=== PATIENT | female | born 1930 | race Caucasian/White ===

== ENCOUNTER 2018-06-04 10:42 | Inpatient (IN) | payer MEDICARE, BC ==
[~2018-06-04] VITALS: Ht 157.5 cm; Wt 68.6 kg
[~2018-06-04 10:42] MED LIST: ASPI81CH PO; Benicar Hct 201 EACH PO; CILO100; Cilostazol50 MG PO; LEVFLO500 PO; LIVALO2 MG PO; METO25ER PO; METO50ER PO; OLME20 PO; OLMESARTAN-HCT1 EAC1 PO; OSEL75CA PO; SIMV40 PO; Tamiflu30 MG PO; VALS80 PO
[2018-06-04] MEDS ORDERED: COLCHICINE0.6 MG PO (11:09)
[2018-06-04 11:43] LABS: BASOPHILS ABSOLUTE AUTO 0.02 K/mm3 (0.00-0.23); BASOPHILS PERCENT AUTO 0 % (0-2); EOSINOPHILS ABSOLUTE AUTO 0.02 K/mm3 (0.00-0.68); EOSINOPHILS PERCENT AUTO 0 % (0-6); Hematocrit 40.9 % (33.0-51.0); Hemoglobin 12.6 g/dL (11.5-16.0); IMMATURE GRAN ABSOLUTE AUTO 0.03 K/mm3 (0.00-0.10); IMMATURE GRAN PERCENT AUTO 0 % (0-1); LYMPHOCYTES ABSOLUTE AUTO 2.42 K/mm3 (0.84-5.20); LYMPHOCYTES PERCENT AUTO 32 % (21-46); MONOCYTES ABSOLUTE AUTO 0.39 K/mm3 (0.16-1.47); MONOCYTES PERCENT AUTO 5 % (4-13); Mean Corpuscular HGB 29.5 pg (26.0-34.0); Mean Corpuscular HGB Conc 30.8 g/dL (31.5-36.5); NEUTROPHILS ABSOLUTE AUTO 4.81 K/mm3 (1.96-9.15); NEUTROPHILS PERCENT AUTO 62 % (41-73); RDW Coefficient Variation 13.3 % (11.7-14.2); RDW Standard Deviation 47.5 fL (35.1-46.3); Red Blood Cell Count 4.27 M/mm3 (3.80-5.20); White Blood Cell Count 7.69 K/mm3 (4.00-11.30)
[2018-06-04 11:53] LABS: Mean Corpuscular Volume 96 fL (80-100); Mean Platelet Volume 11.7 fL (9.1-12.4); Platelet Count 100 K/mm3 (150-400)
[2018-06-04 11:59] LABS: Albumin, Blood 3.1 g/dL (3.4-5.0); Albumin/Globulin Ratio 0.8 (0.8-1.8); Bilirubin, Total 0.5 mg/dL (0.1-1.0); Bun/Creatinine Ratio 18.8 (12.0-20.0); Creatinine, Blood 1.65 mg/dL (0.40-1.00); Potassium, Blood 4.9 mmol/L (3.5-5.5); Total Protein, Blood 7.1 g/dL (6.4-8.2)
[2018-06-04 12:16] LABS: Troponin I 1.12 ng/mL (0.000-0.040)
--- NOTE | 2018-06-04 16:38 | NUR ---
CRITICAL TROP PT ADMITTED AT 1355. ELEVATED BP UPON ARRIVAL. LASIX & NITRO PATCH ORDERED TO ASSIST WITH HTN. PT LOST IV ACCESS BEFORE LASIX ABLE TO BE GIVEN. CRITICAL TROPONIN WAS CALLED OF 8.4. PT HAS A TROPONIN OF 1.[address] CESPEDES AWARE OF NEW TROPONIN & LOSS OF IV ACCESS. STATED SHE WOULD START HEPARIN DRIP AND HAVE A CARDIOLOGY CONSULT PLACED. IV ACCESS IS IN PROGRESS AT THIS TIME. PT DENIES SOB OR CHEST PAIN. PT STATES SHE JUST FEELS WEAK. NO OTHER CHANGES IN ASSESSMENT AT THIS TIME.
--- NOTE | 2018-06-04 17:48 | NUR ---
Echocardiogram completed.
--- NOTE | 2018-06-04 19:10 | NUR ---
SHIFT SUMMARY PT CONTINUES TO DENY CHEST PAIN OR DISCOMFORT. NO SOB. IV ACCESS GAINED & HEPARIN DRIP STARTED. PT CONTINUES TO HAVE AN ELEVATED BP. METOPEROL GIVEN PER EMAR. NO OTHER CHANGES IN ASSESSMENT AT THIS TIME. OTHER VITALS STABLE. REPORT GIVEN TO JUSTINE OZUNA. SULMA STATED SHE HAD NO FURTHER QUESTIONS AT THIS TIME.
--- NOTE | 2018-06-04 23:01 | NUR ---
CRITICAL LAB 2230 CRITICAL TROPONIN 16.4. NOTIFIED PHYSICIAN OF RESULTS AND NO ACTIVE SYMPTOMS R/T CARDIAC EPISODE. STATES WEAKNESS WHICH IS UNCHANGED, BUT NO CP OR SOB. TELE RUNNING NSR WITH PVC'S AND PAC'S @ 83. RUNNING HEPARIN @ 13U/KG/HR. VSS/AFEBRILE. WCTM. NO NEW ORDERS.
[2018-06-05 03:15] LABS: BASOPHILS ABSOLUTE AUTO 0.01 K/mm3 (0.00-0.23); BASOPHILS PERCENT AUTO 0 % (0-2); EOSINOPHILS ABSOLUTE AUTO 0.01 K/mm3 (0.00-0.68); EOSINOPHILS PERCENT AUTO 0 % (0-6); Hematocrit 37.4 % (33.0-51.0); IMMATURE GRAN ABSOLUTE AUTO 0.03 K/mm3 (0.00-0.10); IMMATURE GRAN PERCENT AUTO 0 % (0-1); LYMPHOCYTES ABSOLUTE AUTO 2.19 K/mm3 (0.84-5.20); LYMPHOCYTES PERCENT AUTO 30 % (21-46); MONOCYTES ABSOLUTE AUTO 0.61 K/mm3 (0.16-1.47); MONOCYTES PERCENT AUTO 8 % (4-13); Mean Corpuscular HGB 30.2 pg (26.0-34.0); Mean Corpuscular HGB Conc 32.1 g/dL (31.5-36.5); Mean Corpuscular Volume 94 fL (80-100); Mean Platelet Volume 11.2 fL (9.1-12.4); NEUTROPHILS ABSOLUTE AUTO 4.43 K/mm3 (1.96-9.15); NEUTROPHILS PERCENT AUTO 61 % (41-73); Platelet Count 122 K/mm3 (150-400); RDW Coefficient Variation 13.2 % (11.7-14.2); RDW Standard Deviation 45.8 fL (35.1-46.3); Red Blood Cell Count 3.97 M/mm3 (3.80-5.20); White Blood Cell Count 7.28 K/mm3 (4.00-11.30)
[2018-06-05 03:31] LABS: Albumin, Blood 2.9 g/dL (3.4-5.0); Albumin/Globulin Ratio 0.7 (0.8-1.8); Bilirubin, Total 0.5 mg/dL (0.1-1.0); Bun/Creatinine Ratio 15.1 (12.0-20.0); Calcium, Blood 7.8 mg/dL (8.5-10.1); Creatinine, Blood 1.99 mg/dL (0.40-1.00); Globulin, Blood 3.9 g/dL (2.2-4.0); Magnesium, Blood 1.5 mg/dL (1.6-2.4); Potassium, Blood 3.9 mmol/L (3.5-5.5); Total Protein, Blood 6.8 g/dL (6.4-8.2)
--- NOTE | 2018-06-05 05:37 | NUR ---
SHIFT SUMMARY A/O X4, ABLE TO MAKE NEEDS KNOWN. COOPERATIVE WITH CARE. CALLS AND ANSWERS QUESTIONS APPROPRIATELY. NO C/O PAIN/DISCOMFORT. UP WITH 1 ASSIST TO RESTROOM. ON 2L VIA NC WITH SATURATION >90%. REMAINS ON HEPARIN DRIP WITHOUT COMPLICATIONS. X2 CRITICAL TROPONINS RELATED TO ON-CALL PHYSICIAN. NEW POWERGLIDE TO TYRELL THAT IS PATENT WITH BLOOD RETURN. REMAINS HYPERTENSIVE, BUT APPEARS ON TREND WITH PREVIOUS PRESSURES. LOOSE STOOL NOTED; BREIF IN PLACE. WCTM. BED IN LOWEST POSITION. CALL LIGHT AND BELONGINGS WITHIN REACH. REPORT TO ONCOMING RN.
--- NOTE | 2018-06-05 12:04 | NUR ---
ATIVAN ORDER PT & FAMILY DISCUSSING IF THEY WOULD LIKE TO PERSUE ANGIOGRAM AFTER TUFTING MACHINE FIXER DISCUSSED PROS VS. CONS. DR. CESPEDES ORDERED ATIVAN FOR THE PT TO EASE HER ANXIETY AND HELP WITH MAKING A DECISION. STATED THE PT NORMALLY TAKES ATIVAN BEFORE GOING TO THE DR. OFFICE. WILL CONTINUE TO MONITOR.
--- NOTE | 2018-06-05 17:17 | NUR ---
SHIFT SUMMARY NO CHANGES IN ASSESSMENT AT THIS TIME. AFTERNOON BP IMPROVED FROM THE AM, BUT STILL ELEVATED. PT CONTINUES TO DENY CHEST PAIN & SOB. PT STATES SHE "JUST FEELS WEAK." HEPARIN DRIP CONTINUED AT A RATE OF 13. PT GIVEN LOADING DOSE OF PLAVIX THIS SHIFT. NO BLEEDING NOTED. PT GIVEN ATIVAN TO ASSIST WITH ANXIETY R/T THIS STAY. PT HAS BEEN SLEEPING MOST THE AFTERNOON. PT & FAMILY ARE STILL TO DETERMINE TO CONTINUE WITH AN ANGIO OR NOT. VSS. WILL CONTINUE TO MONITOR UNTIL TURNOVER IS COMPLETE.
--- NOTE | 2018-06-06 05:29 | NUR ---
PT SLEPT THROUGH THE NIGHT, FAMILY AT BEDSIDE. HEPARIN VERIFIED WITH SULMA STAHL. BLOOD DRAWN FROM POWERGLIDE, CAP CHANGED. PT 1 PRSN ASSIST TO BEDSIDE COMM W/ FWW. NO C/O PAIN, SOB. O2 @ 2L. CALL LIGHT IN REACH
[2018-06-06 07:11] LABS: BASOPHILS ABSOLUTE AUTO 0.01 K/mm3 (0.00-0.23); BASOPHILS PERCENT AUTO 0 % (0-2); EOSINOPHILS ABSOLUTE AUTO 0.05 K/mm3 (0.00-0.68); EOSINOPHILS PERCENT AUTO 1 % (0-6); Hematocrit 32.1 % (33.0-51.0); Hemoglobin 10.2 g/dL (11.5-16.0); IMMATURE GRAN ABSOLUTE AUTO 0.03 K/mm3 (0.00-0.10); IMMATURE GRAN PERCENT AUTO 1 % (0-1); LYMPHOCYTES ABSOLUTE AUTO 1.42 K/mm3 (0.84-5.20); LYMPHOCYTES PERCENT AUTO 32 % (21-46); MONOCYTES PERCENT AUTO 11 % (4-13); Mean Corpuscular HGB 30.4 pg (26.0-34.0); Mean Corpuscular HGB Conc 31.8 g/dL (31.5-36.5); Mean Corpuscular Volume 96 fL (80-100); Mean Platelet Volume 10.6 fL (9.1-12.4); NEUTROPHILS ABSOLUTE AUTO 2.44 K/mm3 (1.96-9.15); NEUTROPHILS PERCENT AUTO 55 % (41-73); Platelet Count 116 K/mm3 (150-400); RDW Coefficient Variation 13.2 % (11.7-14.2); RDW Standard Deviation 46.9 fL (35.1-46.3); Red Blood Cell Count 3.35 M/mm3 (3.80-5.20); White Blood Cell Count 4.45 K/mm3 (4.00-11.30)
[2018-06-06 07:26] LABS: Albumin, Blood 2.4 g/dL (3.4-5.0); Albumin/Globulin Ratio 0.7 (0.8-1.8); Bilirubin, Total 0.3 mg/dL (0.1-1.0); Bun/Creatinine Ratio 12.7 (12.0-20.0); Calcium, Blood 7.5 mg/dL (8.5-10.1); Creatinine, Blood 2.45 mg/dL (0.40-1.00); Globulin, Blood 3.6 g/dL (2.2-4.0); Potassium, Blood 3.7 mmol/L (3.5-5.5)
--- NOTE | 2018-06-06 08:53 | NUR ---
PATIENT DID NOT EAT BREAKFAST THIS SHIFT. PATIENT WAS VERY SLEEPY AND DID NOT WANT TO WAKE UP AND EAT. TRAY WAS LEFT IN ROOM AND AFTER 0900 AND THEN WAS REMOVED AND TRAY WAS UNTOUCHED BY PATIENT. FAMILY WAS PRESENT IN ROOM.
--- NOTE | 2018-06-06 12:44 | NUR ---
PATIENT DID NOT EAT LUNCH THIS SHIFT DUE TO BEING NPO AT THIS TIME FOR A PROCEDURE.
--- NOTE | 2018-06-06 14:04 | NUR ---
DR RHODES (DIRECTOR ADULT) IN TO SEE PT THIS AM R/T NEED FOR ANGIOGRAM. PT DELIBERATE WITH SON & DECIDE TO HAVE PROCEDURE. HRT CTR RN NOTIFIED. DR ORDER NS @ 2OO ML/HR & PROCEDURE THIS AFTERNOON AFTER HYDRATION. ALSO ORDER MUCOMYST & PLAVIX. SHE STATE CONTINUING WEAKNESS/FATIGUE. IV ANTIBX FOR PNEUMONIA DX. LUNGS DECREASED BIOX >90% ON 2L O2. TELE SR W PVC @ 65. HEP GTT CONTINUES @ 15.1 ML/HR. HRT CTR RN STATE WILL BE UP FOR PT @ APPROX 1400. SHE IS PLEASANT/COOPERATIVE. SON @ BEDSIDE.
--- NOTE | 2018-06-06 18:51 | NUR ---
PT ADMITTED TO ICU-14 POST CATH AND STENT PLACEMENT. PT HAS MID CIRC. STENT PLACED VIA TR BAND AND SITE IS STABLE. PT DENIES R HAND NUMBNESS OR TENDERNESS AND SATS VIA FINGERS IS STABLE. PT IS VERY A/O BUT TIRED FROM PROCEDURE AND MEDS. WILL FOLLOW.
--- NOTE | 2018-06-06 18:58 | NUR ---
PT TR BAND SITE REMAINS STABLE. DUE TO SL ELEVATED BP AND CHANGE OF SHIFT TIME WILL DEFER DEFLATION TO NOC SHIFT. PT OCC COUCHING UP SMALL ANOUNT OF SPUTUM AND DENIES DISTRESS. PT NOW REQUESTING TO GET UP TO SIDE OF BED AND VOID, HOE WORKER TO ASSIST. VS NOTED.
--- NOTE | 2018-06-06 19:30 | NUR ---
REPORT RECIEVED FROM OFF GOING RN ELSIE. RESTS QUIETLY WHEN UNDISTURBED. MONITOR INTACT SHOWING SINUS RHYTHM. HEART RATE 70'S. DENIES DISCOMFORT. LUNG SOUNDS CLEAR WITH DECREASED SOUNDS IN THE BASES. SPO2 96-99% ON ROOM AIR. ABDMEN SOFT WITH BOWEL SOUNDS FOUR QUADS. UP TO BSC WITH ASSIST. VOIDS A MBER URINE/ ASSIST BACK TO BED. TR BAND INTACT SITE CLEAR. 2CC AIR RELEASED. WILL CONTINUE TO MONITOR AND REPORT CHANGE IN PATIENT CONDITION.
[2018-06-07 03:40] LABS: BASOPHILS ABSOLUTE AUTO 0.01 K/mm3 (0.00-0.23); BASOPHILS PERCENT AUTO 0 % (0-2); EOSINOPHILS ABSOLUTE AUTO 0.05 K/mm3 (0.00-0.68); EOSINOPHILS PERCENT AUTO 1 % (0-6); Hematocrit 25.3 % (33.0-51.0); IMMATURE GRAN ABSOLUTE AUTO 0.04 K/mm3 (0.00-0.10); IMMATURE GRAN PERCENT AUTO 1 % (0-1); LYMPHOCYTES ABSOLUTE AUTO 1.47 K/mm3 (0.84-5.20); LYMPHOCYTES PERCENT AUTO 29 % (21-46); MONOCYTES ABSOLUTE AUTO 0.54 K/mm3 (0.16-1.47); MONOCYTES PERCENT AUTO 11 % (4-13); Mean Corpuscular HGB Conc 31.6 g/dL (31.5-36.5); Mean Corpuscular Volume 95 fL (80-100); Mean Platelet Volume 10.9 fL (9.1-12.4); NEUTROPHILS PERCENT AUTO 58 % (41-73); Platelet Count 122 K/mm3 (150-400); RDW Coefficient Variation 13.1 % (11.7-14.2); RDW Standard Deviation 45.3 fL (35.1-46.3); Red Blood Cell Count 2.67 M/mm3 (3.80-5.20); White Blood Cell Count 5.01 K/mm3 (4.00-11.30)
[2018-06-07 04:10] LABS: Albumin, Blood 2.1 g/dL (3.4-5.0); Albumin/Globulin Ratio 0.7 (0.8-1.8); Bilirubin, Total 0.4 mg/dL (0.1-1.0); Bun/Creatinine Ratio 13.5 (12.0-20.0); Creatinine, Blood 2.23 mg/dL (0.40-1.00); Potassium, Blood 3.7 mmol/L (3.5-5.5); Total Protein, Blood 5.1 g/dL (6.4-8.2)
--- NOTE | 2018-06-07 06:14 | NUR ---
SHIFT SUMMARY RESTS QUIETLY WHEN UNDSITURBED. MONITOR INTACT SHOWING SINUS RHYTHM. HEART RATE 60'S-70'S. MEDICATED WITH TYLENOL FOR SHOULDER/BACK PAIN WITH GOOD RESULTS, ONCE THIS SHIFT. LUNG SOUNDS REMAIN CLEAR/DECREASED , RESPIRATIONS REGULAR AND EASY SPO2 94-98% ON ROOM AIR. ABDOMENS SOFT WITH BOWEL SOUNDS FOUR QUADS. VOIDS BLANCA URINE PER BEDSIDE COMMODE. UP WITH ONE ASSIST AND WALKER. ENCOURAGED TO REPOSITIONS SELF IN BED. TR BAND SITE BRUISED HOWEVER SOFT AND STABLE. CONTINUE TO MONITOR AND REPORT CHANGE IN PATINET CONDITION
--- NOTE | 2018-06-07 10:44 | NUR ---
ALLOWED PT TO SLEEP IN TILL ABOUT 0815. ONE OF SONS IN TO VISIT WHILE PT SET UP IN CHAIR EATING. PT NOTES SOME TENDERNESS IN L SHOULDER THAT IMPROVED WITH ACTIVITY. SHE THEN RETURNED TO BED FOR NAP W/O DISTRESS. TR SITES NOTED WITH HEMATOMA DISCUSSED WITH ARM BOARD REMAINING IN PLACE AND COACHING DISCUSSED WITH PT FOR F/O CARE PER PT. NS TKO. VSS.
[2018-06-07 16:33] LABS: Percent Saturation 23.3 % (15.0-50.0)
--- NOTE | 2018-06-07 18:33 | NUR ---
VSS. NO CHEST OR OTHER PAIN NOTED AND NO DISTRESS C/O OTHER THAN SOME L SHOULDER DISCOMFORT THAT IMPROVED WITH MOVEMENT. UP HAS BEEN UP FOR MEALS AND TO COMMODE BUT STILL REQUIRING SBA X1 PERSON. I/O NOTED. R TR SITE REMAINS BRUISED EARLIER NOTED AND NO BLEEDING OF SITE NOTED WITH ARM BOARD REMAINING ON.
--- NOTE | 2018-06-07 20:00 | NUR ---
ASSUME CARE: REPORT RECIEVED FROM ELSIE OFF GOING RN. MONITOR INTACT SHOWING SINUS RHYTHM. HEART RATE 70'S-80'S. LUNG SOUNDS CLEAR WITH DECREASED BASES. RESPIRATIONS REGULAR AND EASY ON ROOM AIR. SPO2 SPOT CHECKS 95%. ABDOMEN SOFT WITH BOWEL SOUNDS FOUR QUADS. DEPENDS IN PLACE SECONDARY TO INCONTINENCE. TR BAND SITE BRUISED HOWEVER SOFT. CONTINUE TO MONITOR AND REPOSRT CHANGE IN PATIENT CONDITION. DISCUSSED PENDING TRANSFER TO PCU 12 WITH PATIENT. AGREEABLE.
--- NOTE | 2018-06-07 21:15 | NUR ---
REPORT CALLED TO JOANN FLETCHER ACCEPTING RN IN PCU.
--- NOTE | 2018-06-07 21:35 | NUR ---
TRANSFER PER BED TO PCU 12 WITH JOANN FLETCHER ACCOMPANYING
[2018-06-08 04:11] LABS: Hematocrit 24.3 % (33.0-51.0); Hemoglobin 7.7 g/dL (11.5-16.0); Mean Corpuscular HGB 29.6 pg (26.0-34.0); Mean Corpuscular HGB Conc 31.7 g/dL (31.5-36.5); Mean Corpuscular Volume 94 fL (80-100); Mean Platelet Volume 10.7 fL (9.1-12.4); Platelet Count 141 K/mm3 (150-400); RDW Coefficient Variation 13.2 % (11.7-14.2); RDW Standard Deviation 44.9 fL (35.1-46.3)
[2018-06-08 04:30] LABS: Albumin, Blood 2.2 g/dL (3.4-5.0); Anion Gap 12 mmol/L (6-16); Blood Urea Nitrogen 29 mg/dL (8-24); Bun/Creatinine Ratio 13.5 (12.0-20.0); CHOL/HDL RATIO 2.9; CO2, Blood 18 mmol/L (21-32); Calcium, Blood 7.4 mg/dL (8.5-10.1); Chloride, Blood 113 mmol/L (98-108); Cholesterol 128 mg/dL (50-200); Creatinine, Blood 2.15 mg/dL (0.40-1.00); Glomerular Filtration Rate 23 (60-); Glucose, Blood 121 mg/dL (70-99); HDL Cholesterol 44 mg/dL (>39); LDL/HDL RATIO 1.4; Low Density Lipoprotein Chol 63 mg/dL (0-110); Phosphorus, Blood 2.4 mg/dL (2.5-4.9); Potassium, Blood 3.5 mmol/L (3.5-5.5); Sodium, Blood 143 mmol/L (136-145); Triglycerides 104 mg/dL (30-160); Very Low Density Lipoprot Chol 21 mg/dL (6-32)
--- NOTE | 2018-06-08 05:03 | NUR ---
SHIFT SUMMARY PT TRANSFERRED TO PCU AT APPROXIMATELY 2130. SHE WAS ALERT AND ORIENTED ON ARRIVAL AND HAS REMAINED SO T/O SHIFT. SHE HAS HAD NO ACUTE CHANGES TO VITALS, LOC OR MENTATION. PT HAS SLEPT WELL DURING THE NIGHT AND HAS BEEN ABLE TO STAND AND TRASFER TO BS WITH FWW AND SBA. PT ABLE TO COMMUNICATE WITH STAFF EFFECTIVELY AND DEMONSTRATED APPROPRIATE USE OF HER CALL LIGHT. CALL LIGHT WAS LEFT WITHIN REACH. PT DENIED ANY UNMET NEEDS T/O SHIFT. SHE HAD A STENT PLACED YESTERDAY AND HER TR BAND SITE REMAINS SWOLLEN AND BRUISED. THIS HAS IMPROVED PER REPORT FROM ICU NURSE AND BRUISING HAS NOT EXCEEDED THE OUTLINE THAT WAS DRAWN ON EARLIER. PT STATES THERE IS SOME SORENESS AT THE SITE, BUT IS TOLERABLE. SHE HAS BEEN PLEASANT AND COOPERATIVE WITH VITALS AND ASSESSMENTS. SHE HAS HER BED IN THE LOWEST POSITION, CALL LIGHT IN REACH, 2X SIDE RAILS IN PLACE AND NON SLIP SOCKS ON FOR SAFETY. SHE WILL CONTINUE TO BE MONITORED UNTIL HANDOFF TO DAYSHIFT RN.
--- NOTE | 2018-06-08 08:10 | NUR ---
Initial Assessment: Pt resting in bed. LS diminished in bases. HR reg. BT positive. Pulses palp. R radial site with large bruise marked with line. Bruise not outside of line. Site soft, slightly tender. Pt states that she is a little nauseas. States "it just feels like I have been laying down too long". Pt assisted up to chair for breakfast with one person sandro serra. VSS. Call light in reach. Will monitor.
--- NOTE | 2018-06-08 11:56 | NUR ---
UPDATE: 1St unit PRBC started per physician order. Pt sitting up in chair eating lunch. States that she is doing ok. VSS. LS diminished in bases. Pt has moist, productive cough of white sputum. Pt denies questions about blood transfusions. Will monitor.
--- NOTE | 2018-06-08 15:55 | NUR ---
UPDATE: 1st unit blood completed. No S/S of reaction. 2nd unit started. VSS. Pt verbalized understanding of possible blood reaction. Denies Questions. Call light in reach.
--- NOTE | 2018-06-08 19:00 | NUR ---
shift summary: Pt has done well this shift. She has been up for every meal as well as worked with PT. Pt tolerated all the movement very well but has become tired. BP has been elevated throughout the shift and was treated per orders (see emar). HR has remained stable in the 70-90's. Biox has been in the >90's on RA throughout the shift. Pt did start to become more flushed midway through 2nd blood transfusion. Temp remained 98 and pt states "i have always had екатерина cheeks", told her they were more екатерина then this AM. Pt did not seem to be bothered by being flushed but states that she is just worried about being in the hospital, her heart, blood transfusions and everything that is going on. Assured pt that we were taking care of her and that she was improving. 2Nd unit of blood completed at about 1845. VSS. Family in room with Patient. Pt states that she feels cold and that she is shivering. Pt temp 98.7 F but does appear flushed. Pt also states that she is feeling anxious. Explained it could be the 2 units of blood she recieved, the blood pressure medication that was given. Pt will be treated with ativan per orders for anxiety. No other changes this shift and no other S/S of blood reaction. Report was given to night RN.
[2018-06-09 04:15] LABS: Hematocrit 32.5 % (33.0-51.0); Hemoglobin 10.9 g/dL (11.5-16.0); Mean Corpuscular HGB 30.3 pg (26.0-34.0); Mean Corpuscular HGB Conc 33.5 g/dL (31.5-36.5); Mean Platelet Volume 10.7 fL (9.1-12.4); Platelet Count 148 K/mm3 (150-400); RDW Coefficient Variation 14.1 % (11.7-14.2); RDW Standard Deviation 46.9 fL (35.1-46.3); White Blood Cell Count 5.94 K/mm3 (4.00-11.30)
[2018-06-09 04:17] LABS: Mean Corpuscular Volume 90 fL (80-100)
[2018-06-09 04:34] LABS: Albumin, Blood 2.3 g/dL (3.4-5.0); Anion Gap 12 mmol/L (6-16); Blood Urea Nitrogen 24 mg/dL (8-24); Bun/Creatinine Ratio 11.8 (12.0-20.0); CO2, Blood 20 mmol/L (21-32); Calcium, Blood 7.1 mg/dL (8.5-10.1); Chloride, Blood 110 mmol/L (98-108); Creatinine, Blood 2.04 mg/dL (0.40-1.00); Glomerular Filtration Rate 24 (60-); Glucose, Blood 127 mg/dL (70-99); Phosphorus, Blood 3.5 mg/dL (2.5-4.9); Potassium, Blood 3.7 mmol/L (3.5-5.5); Sodium, Blood 142 mmol/L (136-145)
--- NOTE | 2018-06-09 06:28 | NUR ---
SHIFT SUMMARY PT ALERT AND ORIENTED X 3 THROUGHOUT SHIFT. SHE WAS VERY PLEASANT AND COOPERATIVE WITH VITALS AND ASSESSMENTS. PT HAD SOME ANXIETY AT SHIFT ONSET, FOLLOWING ADMINISTRATION OF RBC AND HYDRALAZINE. SHE ALSO HAD SOME FAMILY IN THE ROOM AT THIS TIME, WHO WERE ALSO VERY ANXIOUS. PT WAS PROVIDED ORDERED ANTI ANXIETY MEDICATION AND SHE DENIED ANY FURTHER ISSUES. SHE SLEPT WELL T/O SHIFT, VITALS WERE STABLE AND SHE REMAINED FREE OF PAIN T/O SHIFT. PT WAS ABLE TO STAND AND TRANSFER WITH ONE PERSON SBA TO [facility]. SHE HAS BRUISING PRESENT AT HER RIGHT WRIST ANGIO SITE AND UPPER RIGHT ARM. SKIN IS CLEAR OTHERWISE. PT DENIED ANY UNMET NEEDS AND USED HER CALL LIGHT APPROPRIATELY. SHE HAS HER CALL LIGHT IN REACH AND HER BED HAS BEEN LEFT IN THE LOWEST POSITION. SHE HAS NON SLIP SOCKS ON FOR SAFETY. SHE WILL CONTINUE TO BE MONITORED UNTIL HANDOFF TO DAYSHIFT RN.
--- NOTE | 2018-06-10 05:29 | NUR ---
SHIFT SUMMARY PT ORIGINALLY ADMITTED FOR LL PNEUMONIA. ISOLATION DUE TO INFLUENZA A POSITIVE. WHILE IN PATIENT THE PT EXPERIENCED A NON-ST ELEVATIONS GA, ANEMIA REQUIRING TWO UNITS OF PRBC. DNR. CARDIAC DIET. POWERGLIDE TO L UPPER ARM. 1 ASSIST WTIH FWW. MEDS WHOLE 1 AT A TIME. ACCORDING TO REPORT THE PT WAS HEALTHY ENOUGH AND STRING ENOUGH TO DC YESTERDAY BUT THE PT IS VERY ANXIOUS AND NERVIOUS ABOUT GOING HOME. THE PT DOES HAVE A HISTORY OF FALLS AT HOME AND APPEARS TO THINK THAT SHE IS STILL TO WEAK. THE PT STATED THAT SHE WAS NOT SURE THAT SHE WOULD BE READY TO DC TODAY EITHER. REASSURED PT THAT THERAPY WOULD WORK WITH HER REGARDING THE THINGS THAT WERE MAKING HER NERVIOUS. THE PT APPEARS TO SLEEP COMFORTABLY MOST OF THE NIGHT WITH NO APPARENT SIGNS OF ACUTE DISTRESS. ABLE TO MAKE NEEDS KNOWN AND CALL LIGHT IN REACH.
[2018-06-10 05:31] LABS: Albumin, Blood 2.5 g/dL (3.4-5.0); Anion Gap 12 mmol/L (6-16); Blood Urea Nitrogen 26 mg/dL (8-24); Bun/Creatinine Ratio 13.1 (12.0-20.0); CO2, Blood 20 mmol/L (21-32); Calcium, Blood 7.7 mg/dL (8.5-10.1); Chloride, Blood 109 mmol/L (98-108); Creatinine, Blood 1.99 mg/dL (0.40-1.00); Glomerular Filtration Rate 25 (60-); Glucose, Blood 120 mg/dL (70-99); Phosphorus, Blood 3.3 mg/dL (2.5-4.9); Potassium, Blood 3.8 mmol/L (3.5-5.5); Sodium, Blood 141 mmol/L (136-145)
--- NOTE | 2018-06-10 16:15 | NUR ---
SHIFT SUMMARY PATIENT TO BE STARTED ON ANXIETY MEDICATION RELATED TO HER HIGH BLOOD PRESSURE. DR. VERMA AWARE THAT HER BLOOD PRESSURE IS STILL HIGH. GIVEN HER RECENT HISTORY OF [place] SHE IS UNABLE TO SEND HER HOME UNTIL THIS IS UNDER CONTROL. PATIENT IS ON MANY BLOOD PRESSURE MEDICATIONS WITH VERY LITTLE CONTROL. WILL CONTINUE TO MONITOR FOR CHANGES AT THIS TIME.
--- NOTE | 2018-06-11 07:30 | NUR ---
PT HAD GOOD NIGHT, SLEPT WELL. DENIES PAIN, DISCOMFORT, OR FURTHER NEEDS AT THIS TIME. SAFETY MEASURES IN PLACE. HAND OFF GIVEN TO DAY SHIFT USING SBAR.
[2018-06-11 09:03] LABS: Albumin, Blood 2.6 g/dL (3.4-5.0); Anion Gap 10 mmol/L (6-16); Blood Urea Nitrogen 30 mg/dL (8-24); Bun/Creatinine Ratio 14.3 (12.0-20.0); CO2, Blood 22 mmol/L (21-32); Calcium, Blood 7.7 mg/dL (8.5-10.1); Chloride, Blood 106 mmol/L (98-108); Glomerular Filtration Rate 24 (60-); Glucose, Blood 162 mg/dL (70-99); Phosphorus, Blood 2.8 mg/dL (2.5-4.9); Potassium, Blood 4.6 mmol/L (3.5-5.5); Sodium, Blood 138 mmol/L (136-145)
[2018-06-11] MEDS ORDERED: CLOP75 PO (12:44)
[2018-06-11] MEDS ORDERED: ASPI81CH PO (12:44)
[2018-06-11] MEDS ORDERED: HYDRA25 PO (12:45)
[2018-06-11] MEDS ORDERED: HYDCHL25 PO (12:45)
[2018-06-11] MEDS ORDERED: Isosorbide Mono60 MG PO (12:46)
[2018-06-11] MEDS ORDERED: LOSA50 PO (12:46)
[2018-06-11] MEDS ORDERED: SERT25 PO (12:47)
[2018-06-11] MEDS ORDERED: SACC250C PO (12:47)
--- NOTE | 2018-06-11 14:44 | NUR ---
DISCHARGE SUMMARY PATIENT WAS PLEASANT. ALL INFORMATION WAS TALKED THROUGH WITH THE PATIENT AND HER SON PRIOR TO HER DISCHARGE. HER MEDICATIONS HAVE BEEN EXPLAINED AND NOTED THE FINAL ADMINISTRATION PRIOR TO DISCHARGE. HER POWERGLIDE WAS REMOVED.
== END 2018-06-11 14:44 | disposition home or self-care (01) | DRG 248 ==
LOC: ER 10:42 → PCU 13:08 → MEDS 13:08 → PCU 06-06 14:26 → ICUW 06-06 14:33 → PCU 06-07 21:33 → MEDS 06-09 21:40 → ENPENDDIS 06-11 14:02 → MEDS 06-11 14:44
PROVIDERS: Internal Medicine; ADMIT Internal Medicine
PROC: 02703DZ Dilation of Coronary Artery, One Artery with Intraluminal Device, Percutaneous Approach (ICD-10-PCS; principal; 2018-06-06)
PROC: B2111ZZ Fluoroscopy of Multiple Coronary Arteries using Low Osmolar Contrast (ICD-10-PCS; 2018-06-06)
DX: I21.4 Non-ST elevation (NSTEMI) myocardial infarction (principal); J10.00 Influenza due to other identified influenza virus with unspecified type of pneumonia; N17.9 Acute kidney failure, unspecified; N18.4 Chronic kidney disease, stage 4 (severe); I25.10 Atherosclerotic heart disease of native coronary artery without angina pectoris; E78.5 Hyperlipidemia, unspecified; E03.9 Hypothyroidism, unspecified; I73.9 Peripheral vascular disease, unspecified; D69.6 Thrombocytopenia, unspecified; E83.39 Other disorders of phosphorus metabolism; D63.8 Anemia in other chronic diseases classified elsewhere; I12.9 Hypertensive chronic kidney disease with stage 1 through stage 4 chronic kidney disease, or unspecified chronic kidney disease; F41.9 Anxiety disorder, unspecified
CPT/HCPCS: 36415; 36430; 71046; 80048; 80053; 80061; 80069; 81001; 82728; 83036; 83540; 83550; 83735; 83880; 84484; 85025; 85027; 85347; 85730; 86850; 86900; 86901; 86923; 87077; 87086; 87186; 87804; 92928; 93005; 93010; 93306; 93454; 96361; 96365; 96366; 96367; 96372; 96375; 96376; 97110; 97116; 97162; 97166; 97530; 97535; 99152; 99153; 99285-25; C1725; C1769; C1876; C1887; C1894; G0378; J0360; J0696; J1644; J1650; J1940; J2250; J2543; J3010; J3370; J7030; J7050; J7060; J7120; P9016; Q9967